=== PATIENT | female | born 1965 | race Caucasian/White ===

== ENCOUNTER 2016-12-31 11:15 | Outpatient (CLI) | payer OTHER ==
[~2016-12-31 11:15] MED LIST: CHANTIX STARTIN0.5 & PO; DOCUSATE SODIU100 MG PO; LITHIUM CARBON450 MG PO; LOPRESSOR50 MG PO; MILK OF MA400 MG/5 M PO; NITROFURANTOIN100 M1 PO; OXYCODONE/ACETA1 TA1 PO; ZANAFLEX4 M1 PO
--- NOTE | 2016-12-31 11:33 | DIAGNOSTIC IMAGING REPORT ---
PROCEDURE: XR SHOULDER 2 OR MORE VW-LEFT INDICATION: LEFT ROTATOR CUFF SYNDROME TECHNIQUE: Three views. COMPARISON: None. FINDINGS: Osseous structures and joint spaces are normal. IMPRESSION: 1. Normal left shoulder.
== END 2016-12-31 23:00 ==
LOC: XR SRH 11:15
DX: M75.102 Unspecified rotator cuff tear or rupture of left shoulder, not specified as traumatic (principal)